=== PATIENT | female | born 1990 | race Caucasian/White ===

== ENCOUNTER 2017-07-18 04:02 | Inpatient (IN) | payer BC ==
[2017-07-18] VITALS (49 sets, daily range): BP systolic 95–156; BP diastolic 54–99; PULSE 77–140; TEMP 97.8–98.9
[~2017-07-18] VITALS: Ht 160 cm; Wt 85.0 kg
[~2017-07-18 04:02] MED LIST: GLUCOPHAGE500 MG/TAB PO; MOTRIN 600600 MG/TAB PO; PERCOCET 325 MG1 TA2 PO; PRENATAL
[2017-07-18 05:04] LABS: BASO % 0.3 % (0.0-2.0); EOS # 0.2 (0.0-0.7); EOS % 1.2 % (0-4.0); GRAN # 9.5 (1.4-6.5); GRAN % 76.3 % (42.2-75.2); HEMATOCRIT 38.4 % (37.0-47.0); HEMOGLOBIN 12.5 g/dl (12.5-16.0); LYMPH # 1.8 (1.2-3.4); LYMPH % 14.5 % (20.0-51.0); MEAN CELL VOLUME 82 fl (80.0-100.0); MEAN CORPUSCULAR HEMOGLOBIN 27 pg (27.0-31.0); MEAN CORPUSCULAR HGB CONC 33 g/dl (33.0-37.0); MEAN PLATELET VOLUME 10.3 fl (7.4-10.4); MONO # 0.9 (0.1-0.6); MONO % 7.1 % (1.7-9.3); PLATELET COUNT 264 K/mm3 (130-400); WHITE BLOOD COUNT 12.5 K/mm3 (4.8-10.8)
[2017-07-19 03:35] VITALS: BP 91/50; PULSE 86; TEMP 97.5
[2017-07-19 07:30] LABS: HEMATOCRIT 29.9 % (37.0-47.0); HEMOGLOBIN 9.7 g/dl (12.5-16.0)
[2017-07-19 07:56] VITALS: BP 115/81; PULSE 85
[2017-07-19 16:00] VITALS: BP 109/70; PULSE 89; TEMP 97.4
[2017-07-19 20:40] VITALS: BP 121/64; PULSE 75; TEMP 98.2
[2017-07-20 08:15] VITALS: BP 117/70; PULSE 88; TEMP 98.4
[2017-07-20] MEDS ORDERED: IBU600 MG PO (10:11)
[2017-07-20] MEDS ORDERED: PERCOCET 325 MG1 TA2 PO (10:11)
== END 2017-07-20 14:30 | disposition home or self-care (01) | DRG 775 ==
LOC: LDRO 04:02 → LDR 04:40 → OB 04:40
PROVIDERS: Obstetrics & Gynecology
PROC: 10E0XZZ Delivery of Products of Conception, External Approach (ICD-10-PCS; principal; 2017-07-18)
PROC: 0KQM0ZZ Repair Perineum Muscle, Open Approach (ICD-10-PCS; 2017-07-18)
DX: O48.0 Post-term pregnancy (principal); O70.1 Second degree perineal laceration during delivery; Z3A.40 40 weeks gestation of pregnancy; Z37.0 Single live birth
CPT/HCPCS: J2405; J2590; J2795; J7120